=== PATIENT | male | born 1975 | race Caucasian/White ===

== ENCOUNTER 2017-01-31 15:04 | Emergency (ER) | payer MEDICAID ==
[~2017-01-31] VITALS: Ht 188 cm; Wt 130.6 kg
[2017-01-31 16:06] VITALS: BP 141/92
[2017-01-31] MEDS ORDERED: NACL 0.9% 1,000 ML IV SCH (18:27)
[2017-01-31] MEDS ORDERED: ONDANSETRON 4 MG/2 ML VIAL IVP ONE (18:30)
--- NOTE | 2017-01-31 19:43 | NUR ---
PATIENT AMBULATED TO ER BED 6.
[2017-01-31 19:45] LABS: HEMATOCRIT 48.7 % (36-52); HEMOGLOBIN 16.4 g/dL (12.0-18.0); MEAN CORPUSCULAR HEMOGLOBIN 31 pg (27-31); MEAN CORPUSCULAR HGB CONC 34 g/dL (33-37); MEAN CORPUSCULAR VOLUME 91 fL (80-94); PLATELET COUNT (AUTO) 341 K/uL (140-450); RED BLOOD CELL COUNT(AUTO) 5.36 MIL/uL (4.20-6.10); RED CELL DISTRIBUTION WIDTH 12.3 % (11.6-13.7); WHITE BLOOD COUNT (AUTO) 17.5 K/uL (4.8-10.8)
--- NOTE | 2017-01-31 19:45 | NUR ---
PATIENT PRESENTS TO ED WITH C/O RUQ PAIN X 2 DAYS WITH NAUSEA . PT DENIES V/D; SKIN IS PINK/WARM/DRY; AAOX4 WITH EVEN AND STEADY GAIT; LUNGS CLEAR BL; HR EVEN AND REGULAR; PT DENIES ANY FEVER, CP, SOB, OR COUGH AT THIS TIME; PATIENT STATES PAIN OF 8/10 AT THIS TIME; VSS; PATIENT POSITIONED FOR COMFORT; HOB ELEVATED; BEDRAILS UP X2; BED DOWN. ER MD MADE AWARE OF PT STATUS.
[2017-01-31 20:00] LABS: ALBUMIN 4.3 g/dL (3.4-5.0); ANION GAP 13.4 (8-16); CALCIUM 8.5 mg/dL (8.5-10.1); CARBON DIOXIDE 28.2 mmol/L (21-32); CREATININE 0.9 mg/dL (0.6-1.3); POTASSIUM 3.6 mmol/L (3.5-5.1); TOTAL BILIRUBIN 1.2 mg/dL (0.0-1.0); TOTAL PROTEIN, SERUM 8.7 g/dL (6.4-8.2)
--- NOTE | 2017-01-31 20:00 | NUR ---
PATIENT BEING EVALUATED BY DR. SEVILLA.
[2017-01-31 20:02] LABS: BAND % (MANUAL) 3 % (0-8); LYMPHOCYTES % (MANUAL) 15 % (20-46); MONOCYTES % (MANUAL) 6 % (5-12); NEUTROPHILS % (MANUAL) 75 (43-65); PLATELET ESTIMATE ADEQUATE; PROMYELOCYTES % 1 % (0-0)
[2017-01-31] MEDS ORDERED: KETOROLAC 30 MG/ML VIAL IVP ONE (20:35)
--- NOTE | 2017-01-31 21:32 | NUR ---
IV removed, catheter intact and site benign. Applied folded 4x4 gauze and tape to stop bleeding.
[2017-01-31 21:33] VITALS: BP 136/82
[2017-01-31 22:04] LABS: APPEARANCE,URINE CLEAR (CLEAR); BILIRUBIN,URINE NEGATIVE (NEGATIVE); BLOOD, URINE NEGATIVE (NEGATIVE); COLOR,URINE YELLOW (YELLOW); LEUKOCYTE ESTERASE ,URINE NEGATIVE (NEGATIVE); NITRITE, URINE NEGATIVE (NEGATIVE); PROTEIN,URINE NEGATIVE (NEGATIVE); UGLUCOSE NEGATIVE (NEGATIVE); UROBILINOGEN,URINE 0.2 EU/dL (0.2 - 1)
== END 2017-01-31 21:33 | disposition home or self-care (01) ==
LOC: MED 15:04
DX: R10.11 Right upper quadrant pain (principal)
CPT/HCPCS: 36415; 76705; 80053; 81003; 82150; 83690; 85025; 96361; 96374; 96375; 99285; J1885; J2405; J7030